=== PATIENT | female | born 1990 | race Caucasian/White ===

== ENCOUNTER 2021-09-20 16:18 | Emergency (ER) | payer MEDICAID, SELFPAY ==
[2021-09-20 16:19] VITALS: BP 174/95; PULSE 99; RESP 23; TEMP 36.5; O2SAT 99; BMI 58.6
--- NOTE | 2021-09-20 16:38 | EDS_ITS ---
HPI History of Present Illness Chief Complaint: Palpitations Informant: patient Onset/Context/Timing Onset: Today Context: Sudden Onset Timing: Waxes and wanes Quality: Dyspnea Location: Chest Worsened by: Nothing Relieved by: Nothing Narrative Narrative: Patient presenting with palpitations that began today. Patient states she was walking to arrange when she felt her heart racing. Patient states she feels like she cannot catch her breath. Patient states her symptoms have been waxing and waning. Patient states that when she sat down, her watch alerted her that her heart rate was very high. Patient states her watch stated that her heart rate was in the 160s. Patient states it went down into the 120s and then back up to the 140s. Patient states nothing makes her symptoms any better nothing makes them worse. Patient denies any fevers or chills.. Patient admits to some nausea but denies any vomiting. [facility] Medical History (Updated 09/20/21 @ 20:[address] Solitario Mora DO) Anxiety and depression Allergy/AdvReac Type Severity Reaction Status Date / Time hydromorphone [From Dilaudid] AdvReac Hives Verified 09/20/21 16:21 Surgical History (Updated 09/20/21 @ 16:[address] Solitario Mora DO) H/O section History of total abdominal hysterectomy Hx of cholecystectomy Hx of eye surgery Hx of tubal ligation Social History Smoking Status: Never smoker ROS ROS ED Constitutional Constitutional ED: Denies chills or fever(s) Eyes Eyes: Denies blurry vision or change in vision ENT ENT ED: Denies rhinorrhea or sore throat Cardiovascular Cardiovascular: Reports palpitations and racing heartbeat; Denies chest pain Respiratory/Chest Respiratory/Chest: Reports dyspnea; Denies cough Gastrointestinal Gastrointestinal: Reports nausea; Denies vomiting Genitourinary Genitourinary ED: Denies dysuria or hematuria Musculoskeletal Musculoskeletal: Reports back pain; Denies neck pain Integumentary Denies abscess or rash Neurologic Neurologic: Denies headache(s) or weakness Allergic/Immunologic Allergic/Immunologic ED: Denies mouth swelling or urticaria EXAM Physical Exam Const Vital Signs: 09/20/21 16:19 09/20/21 17:02 05/19/22 18:40 Temperature 97.7 F L Temperature Source Temporal Pulse Rate 99 86 Respiratory Rate 23 H 20 H Blood Pressure 174/95 H Blood Pressure Mean 121 Pulse Ox 99 98 98 Oxygen Delivery Method Room Air Room Air Room Air Positive well nourished, well developed and obese General Appearance ED: well developed and NAD Nutritional Appearance: obese HEENT Reports moist mucous membranes Neck supple and no JVD Resp normal respiratory effort and clear to auscultation bilaterally Cardio regular rate, regular rhythm and no murmurs GI normal to inspection, nondistended, normoactive bowel sounds and non-tender Palpation: soft Extremity normal to inspection General Extremety ED: Negative for edema or tenderness General Extremity: Negative for edema Neuro oriented x3, CN's II-XII intact bilaterally and no sensory deficits noted Sensorium / Orientation: alert Motor Exam: strength 5/5 throughout Psych mental status grossly normal Skin no rashes or lesions noted MDM MDM MDM Narrative Medical decision making narrative: EKG was obtained. On my interpretation, it showed a normal sinus rhythm with a rate of 94. CO interval, QRS interval, and QTc intervals were all normal. [place] was normal. There are no acute ST or T wave changes. Portable 1 view chest x-ray was obtained. On my interpretation, lung morrow are clear. There is normal cardiac silhouette. Bony thorax is normal. There is no acute process noted. Radiologist also interpreted the x- ray and agrees. CBC shows a slight anemia with a hemoglobin of 11.6 and hematocrit 34.0. Basic metabolic profile showed a slightly elevated creatinine of 1.16 and a BUN of 20. D-dimer was normal. High-sensitivity troponin was less than 3. TSH was normal. Magnesium was normal. Because her symptoms started just prior to arrival, a 2-hour high-sensitivity troponin was obtained and was also less than 3. Patient was advised of her findings. Patient is feeling better on reevaluation. Patient is resting comfortably. Patient has a HEART score of 0. Patient was advised that this is low risk for acute cardiac event. Patient was instructed to follow-up with her primary care physician in 5 to 7 days. Patient understood and was agreeable with the plan. All questions were answered. Lab Data Attestation: I reviewed the patient's lab results. Labs: Laboratory Results - last 24 hr 09/20/21 09/20/21 09/20/21 16:59 16:59 16:59 WBC 10.9 RBC 3.93 L Hgb 11.6 L Hct 34.0 L MCV 86.5 MCH 29.5 MCHC 34.1 RDW Std Deviation 39.4 RDW Coeff of Any 12.5 Plt Count 281 MPV 8.9 Immature Gran % (Auto) 0.600 Neut % (Auto) 74.3 H Lymph % (Auto) 17.9 L [place] % (Auto) 5.1 Eos % (Auto) 1.8 Baso % (Auto) 0.3 Absolute Neuts (auto) 8.1 H Absolute Lymphs (auto) 1.95 Nucleated RBC % 0 D-Dimer Quant (PE/DVT) < 0.27 L Sodium 138 Potassium 3.9 Chloride 104 Carbon Dioxide 26.0 Anion Gap 8 BUN 20 H Creatinine 1.16 H Estim Creat Clear Calc 73.44 Est GFR (MDRD) Af Amer 70 Est GFR (MDRD) Non-Af 58 L BUN/Creatinine Ratio 17.2 Glucose 103 Calcium 9.0 Magnesium 2.1 Troponin I High Sens < 3 L TSH 3.21 09/20/21 19:02 WBC RBC Hgb Hct MCV MCH MCHC RDW Std Deviation RDW Coeff of Any Plt Count MPV Immature Gran % (Auto) Neut % (Auto) Lymph % (Auto) [place] % (Auto) Eos % (Auto) Baso % (Auto) Absolute Neuts (auto) Absolute Lymphs (auto) Nucleated RBC % D-Dimer Quant (PE/DVT) Sodium Potassium Chloride Carbon Dioxide Anion Gap BUN Creatinine Estim Creat Clear Calc Est GFR (MDRD) Af Amer Est GFR (MDRD) Non-Af BUN/Creatinine Ratio Glucose Calcium Magnesium Troponin I High Sens < 3 L TSH Radiography Chest X-Ray - ED: 1 View, Read by ED Physician, Read by Radiologist and No Acute Disease Diagnostic Testing: Clinical Impression(s) from Imaging Studies Chest X-Ray 09/20/21 16:52 IMPRESSION: Normal x-ray examination of the chest. Electronically Signed: Rm Hylton MD at 17:02 EDT , EKG Initial EKG: Attestation: I personally reviewed and interpreted this EKG as follows: Interpretation: Sinus Rhythm (94) and No Acute Injury Pattern Prior EKG tracings: not available for review Prior: No Prior Discharge Plan Triage Chief Complaint: Palpitations ED Provider: Solitario Mora Dx/Rx/DC Orders Clinical Impression: Heart palpitations, Morbid obesity with BMI of 50.0-59.9, adult Instructions: ED Palpitations Primary Care Provider: Care Physician,No Primary Referrals: Dom Carrillo MD [STAFF PHYSICIAN] - 5-7 Days Care Physician,No Primary [Primary Care Provider] - Disposition Disposition: Home, Self Care
--- NOTE | 2021-09-20 16:42 | EKG12_ITS ---
Test Reason : Blood Pressure : / mmHG Vent. Rate : 094 BPM Atrial Rate : 094 BPM P-R Int : 140 ms QRS Dur : 096 ms QT Int : 368 ms P-R-T Axes : 026 043 017 degrees QTc Int : 460 ms Normal sinus rhythm Normal ECG Confirmed by DAVID GALVEZ, RONALD ([id number]), health editor KEVIN HINSON ([id number]) on 09/24/2021 9:57:10 AM Referred By: Confirmed By:LAINE HERNANDEZ MD
--- NOTE | 2021-09-20 16:52 | RAD_ITS ---
STUDY: X-RAY CHEST REASON FOR EXAM: Female, 30 years old. chest pain TECHNIQUE: Single AP portable view of the chest. COMPARISON: None. FINDINGS: The lungs are clear and expanded. There is no demonstrated pleural abnormality. Normal size heart. Normal mediastinum and alexander. Normal visualized pulmonary arteries. Normal visualized aortic arch and descending thoracic aorta. Normal visualized thoracic spine. Normal visualized ribs, clavicles, and shoulders. There is no demonstrated abnormality of the visualized soft tissue structures of the upper abdomen. RAD/Chest 1 View (Portable) IMPRESSION: Normal x-ray examination of the chest. Electronically Signed: Rm Hylton MD at 17:02 EDT ,
[2021-09-20 17:02] VITALS: O2SAT 98
[2021-09-20] MEDS: Aspirin 81 MG TAB.CHEW 324 MG PO (17:03)
[2021-09-20] MEDS: 0.9% Normal Saline 1,000 ML 1000 ML IV (17:03)
[2021-09-20 17:08] LABS: Absolute Lymphocyte Count 1.95 X10^3/uL (0.83-4.51); Absolute Neutrophil Count 8.1 X10^3/uL (2.0-7.7); Basophil# 0.03 X10^3/uL; Basophil% 0.3 % (0-1); Eosinophils% 1.8 % (0-5); Hemoglobin 11.6 g/dL (12.0-15.0); Lymphocyte # 1.95 X10^3/ul (0.83-4.51); Lymphocyte % 17.9 % (19-41); Mean Corp Hgb Conc 34.1 g/dL (32-36); Mean Corpuscular Hgb 29.5 pg (27.0-32.0); Mean Corpuscular Volume 86.5 fL (81-99); Mean Platelet Vol. 8.9 fl (6.2-12.0); Monocyte# 0.56 X10^3/uL; Monocyte% 5.1 % (0-10); NRBC Flagged by Analyzer 0 % (0-5); Neutrophil % 74.3 % (47-70); Platelet Count 281 K/mm3 (150-450); RBC Distribution Width CV 12.5 % (11.6-14.6); RBC Distribution Width SD 39.4 fl (35.1-43.9); Red Blood Count 3.93 M/mm3 (4.2-5.4); White Blood Count 10.9 K/mm3 (4.4-11.0)
[2021-09-20 17:31] LABS: D-Dimer Quantitative (DVT/PE) < 0.27 FEU/ug/m (0.27-0.49)
[2021-09-20 17:33] LABS: Anion Gap 8 (5-15); BUN 20 mg/dL (7-18); BUN/Creat Ratio 17.2 RATIO (10-20); Chloride 104 mmol/L (98-107); Creatinine, Serum 1.16 mg/dL (0.55-1.02); EST Glomerular Filtration Rate 58 mL/min (>60); Est Glom Filt Rate - Afr Amer 70 mL/min (>60); Estimated Creatinine Clearance 73.44 ml/min; Glucose 103 mg/dL (74-106); Magnesium 2.1 mg/dL (1.6-2.6); Potassium 3.9 mmol/L (3.5-5.1); Sodium Level 138 mmol/L (136-145); Thyroid Stim Hormone (TSH) 3.21 uIU/mL (0.358-3.74); Troponin-I HS (w/2H Reflex) < 3 pg/mL (3.0-54.0)
[2021-09-20 18:40] VITALS: PULSE 86; RESP 20; O2SAT 98
[2021-09-20 19:02] LABS: Reflex Troponin-HS? (from REC) Y
--- NOTE | 2021-09-20 19:28 | CM.ED ---
Social Work Note Pt has no PCP listed. SW in to speak with pt. Pt states that she has a PCP and it is Caryl Rodriguez in [facility]. Pt denied additional needs or concerns at this time. 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
[2021-09-20 19:29] LABS: Troponin-I HS < 3 pg/mL (3.0-54.0)
[2021-09-20 20:19] VITALS: BP 142/73; PULSE 83; RESP 15; O2SAT 97
[2021-09-20 20:32] VITALS: BP 142/73; PULSE 84; RESP 15; O2SAT 98
== END 2021-09-20 20:39 | disposition home or self-care (01) ==
PROVIDERS: Emergency Provider Emergency Medicine; Visit Provider Emergency Medicine
DX: R00.2 Palpitations (principal); E66.01 Morbid (severe) obesity due to excess calories; Z68.43 Body mass index [BMI] 50.0-59.9, adult
CPT/HCPCS: 71045; 80048; 83735; 84443; 84484; 85025; 85379; 93005; 96360; 99285; J7030; A4216

== ENCOUNTER 2024-05-04 20:59 | Emergency (ER) | payer MEDICAID, SELFPAY ==
[2024-05-04 21:00] VITALS: BP 163/87; PULSE 88; RESP 16; TEMP 36.8; O2SAT 100
[2024-05-04 21:02] VITALS: BMI 62.4
--- NOTE | 2024-05-04 21:14 | RAD_ITS ---
STUDY: X-RAY CHEST REASON FOR EXAM: Female, 33 years old. chest pain TECHNIQUE: Single AP portable view of the chest. COMPARISON: 09/20/2021 FINDINGS: Status post anterior cervical discectomy and fusion of the lower cervical spine. The lungs are clear and expanded. There is no demonstrated pleural abnormality. Normal size heart. Normal mediastinum and alexander. Normal visualized pulmonary arteries. Normal visualized aortic arch and descending thoracic aorta. Normal visualized thoracic spine. Normal visualized ribs, clavicles, and shoulders. There is no demonstrated abnormality of the visualized soft tissue structures of the upper abdomen. RAD/Chest 1 View (Portable) IMPRESSION: Normal x-ray examination of the chest. Electronically Signed: Rm Hylton MD at 21:33 EST ,
--- NOTE | 2024-05-04 21:14 | EKG12_ITS ---
Test Reason : CP Blood Pressure : */* mmHG Vent. Rate : 82 BPM Atrial Rate : 82 BPM P-R Int : 142 ms QRS Dur : 92 ms QT Int : 368 ms P-R-T Axes : 22 14 44 degrees QTcB Int : 429 ms Normal sinus rhythm Normal ECG Confirmed by DARÍO GALVEZ, RACHEL ([id number]), script editor ADRIENNE BOSS ([id number]) on 05/06/2024 6:13:55 AM Referred By: CG Confirmed By: RACHEL CHANEL MD
[2024-05-04 21:48] LABS: Absolute Lymphocyte Count 2.68 X10^3/uL (0.83-4.51); Absolute Neutrophil Count 6.6 X10^3/uL (2.0-7.7); Basophil# 0.05 X10^3/uL; Basophil% 0.5 % (0-1); Eosinophil# 0.34 X10^3/uL; Eosinophils% 3.3 % (0-5); Hematocrit 31.9 % (37-47); Hemoglobin 10.8 g/dL (12.0-15.0); Lymphocyte # 2.68 X10^3/ul (0.83-4.51); Mean Corp Hgb Conc 33.9 g/dL (32-36); Mean Corpuscular Volume 88.6 fL (81-99); Mean Platelet Vol. 9.5 fl (6.2-12.0); Monocyte# 0.56 X10^3/uL; Monocyte% 5.4 % (0-10); NRBC Flagged by Analyzer 0 % (0-5); Neutrophil # 6.58 X10^3/uL (2.7-7.7); Platelet Count 225 K/mm3 (150-450); RBC Distribution Width CV 12.6 % (11.6-14.6); RBC Distribution Width SD 40.6 fl (35.1-43.9); White Blood Count 10.3 K/mm3 (4.4-11.0)
[2024-05-04 22:00] VITALS: BP 103/68; PULSE 88; RESP 15; O2SAT 94
[2024-05-04 22:06] LABS: Anion Gap 5 (5-15); BUN 18 mg/dL (7-18); Chloride 105 mmol/L (98-107); Creatinine, Serum 1.06 mg/dL (0.55-1.02); EST Glomerular Filtration Rate 63 mL/min (>60); Est Glom Filt Rate - Afr Amer 76 mL/min (>60); Glucose 104 mg/dL (74-106); Sodium Level 137 mmol/L (136-145); Troponin-I HS (w/2H Reflex) < 3 pg/mL (3.0-54.0)
[2024-05-04] MEDS: Aspirin 325 MG Tablet PO (22:46)
[2024-05-04] MEDS: Ondansetron 4 MG/2 ML Vial IV (22:46)
[2024-05-04] MEDS: Morphine 4 MG/ML Syringe IV (22:46)
[2024-05-04 23:00] VITALS: BP 108/64; PULSE 91; RESP 14; O2SAT 93
[2024-05-04 23:03] LABS: D-Dimer Quantitative (DVT/PE) 0.27 FEU/ug/m (0.27-0.49)
[2024-05-04 23:05] LABS: AST(SGOT) 36 U/L (15-37); Alanine Aminotransfer ALT/SGPT 56 U/L (13-56); Albumin, Serum 3.3 g/dL (3.2-5.0); Alkaline Phosphatase 130 U/L (45-117); Bilirubin, Direct 0.26 mg/dL (0.00-0.30); Globulin 3.6 g/dL (2.2-4.2); Lipase 48 U/L (13-75); Magnesium 2.1 mg/dL (1.6-2.6); Protein, Total 6.9 g/dL (6.4-8.2)
[2024-05-04 23:43] LABS: Reflex Troponin-HS? (from REC) Y
[2024-05-05] VITALS: BP 112/75; PULSE 87; RESP 14; O2SAT 95
[2024-05-05 00:31] LABS: Troponin-I HS 5 pg/mL (3.0-54.0)
--- NOTE | 2024-05-05 00:44 | EX.ED.DYSGE1 ---
HPI History of Present Illness Chief Complaint: Chest Pain Informant: patient and friend Narrative Narrative: Patient is a 33-year-old female with a past medical history of anxiety and depression as well as previous total abdominal hysterectomy now on hormone replacement therapy. She states that a few hours ago while sitting at rest she developed a sharp midsternal to left-sided chest pain. She states there is no associated nausea vomiting diaphoresis or shortness of breath. She states there was no recent trauma or excessive activity. She denies any known sick contacts. She denies any recent travel surgery or history of DVT/PE. She states she tried [id number] medications but the pain will not resolve and secondary to this comes in for evaluation [facility] Medical History (Updated 05/05/24 @ 00:[address] Toni Newton DO) Anxiety and depression Home Medications ?Medication ?Instructions ?Recorded ?Last Taken ?Type cyclobenzaprine 10 mg tablet 10 mg PO DAILY 09/20/21 Unknown History ketorolac 10 mg tablet 10 mg PO Q6H PRN PRN Pain 09/20/21 Unknown History trazodone 50 mg tablet 50 mg PO QHS 09/20/21 Unknown History venlafaxine 75 mg capsule,extended 75 mg PO DAILY 09/20/21 Unknown History release 24 hr Allergy/AdvReac Type Severity Reaction Status Date / Time Acrylic Acid and Acrylates Allergy Rash Verified 05/04/24 21:02 (steri-strips (acrylate)) magnesium Allergy ITCHING Verified 05/04/24 21:02 hydromorphone (From Dilaudid) AdvReac Hives Verified 05/04/24 21:02 melatonin AdvReac HEADACHE Verified 05/04/24 21:02 Surgical History (Updated 09/20/21 @ 16:[address] Solitario Mora DO) Hx of tubal ligation Hx of eye surgery Hx of cholecystectomy H/O section History of total abdominal hysterectomy Social History Smoking Status: Never smoker ROS ROS ED Constitutional Constitutional ED: Denies chills or fever(s) Eyes Eyes: Denies blurry vision or change in vision ENT ENT ED: Denies sore throat Cardiovascular Cardiovascular: Reports chest pain; Denies palpitations or racing heartbeat Respiratory/Chest Respiratory/Chest: Denies cough or dyspnea Gastrointestinal Gastrointestinal: Denies abdominal pain, diarrhea, nausea or vomiting Genitourinary Genitourinary ED: Denies dysuria Musculoskeletal Musculoskeletal: Denies back pain Integumentary Denies rash Neurologic Neurologic: Denies headache(s) Hematologic/Lymphatic Hematologic/Lymphatic: Denies easy bleeding or easy bruising EXAM Physical Exam Const Vital Signs: 05/04/24 21:00 05/04/24 21:00 05/04/24 21:14 Temperature 98.2 F Temperature Source Oral Pulse Rate 88 Respiratory Rate 16 Respiratory Effort Normal Non-Labored Blood Pressure 163/87 H Blood Pressure Mean 112 Pulse Ox 100 Oxygen Delivery Method Room Air Room Air 05/04/24 22:00 05/04/24 23:00 05/05/24 00:00 Temperature Temperature Source Pulse Rate 88 91 87 Respiratory Rate 15 14 14 Respiratory Effort Blood Pressure 103/68 108/64 112/75 Blood Pressure Mean 79 78 87 Pulse Ox 94 93 95 Oxygen Delivery Method Room Air Room Air Room Air Positive well nourished, well developed and obese General Appearance ED: well developed; Negative for pallor Nutritional Appearance: obese HEENT HEENT Narrative: Normocephalic atraumatic Eyes PERRL and EOMs intact bilaterally General Eye ED: Negative for scleral icterus Neck supple Neck Narrative: No nuchal rigidity or meningeal signs Chest Wall Chest Narrative: No bony deformity or crepitance of the chest wall No overlying soft tissue changes to suggest trauma or infection Resp normal respiratory effort and clear to auscultation bilaterally Resp Narrative: Breath sounds are diminished throughout but overall clear to auscultation without signs of respiratory distress Cardio regular rate and regular rhythm Rate: other Other Details: Regular rate and rhythm without murmurs rubs or gallops Radial and carotid pulses are equal and symmetric GI non-distended and no masses GI Narrative: Obese soft and nondistended with normal active bowel sounds. Patient has mild pain with palpation in the midepigastric region without voluntary guarding or rigidity. No pulsatile mass or fluid wave Auscultation: normoactive bowel sounds Palpation: soft Back/Spine no CVA tenderness Extremity normal to inspection Extremity Narrative: No asymmetric edema no pitting edema negative Homans' sign bilaterally Neuro oriented x3, CN's II-XII intact bilaterally and no sensory deficits noted Sensorium / Orientation: alert Motor Exam: strength 5/5 throughout Psych mental status grossly normal Skin no rashes or lesions noted and no wounds General Skin Exam: Negative for jaundice or pallor MDM MDM MDM Narrative Medical decision making narrative: Patient arrived to the ER hypertensive but otherwise with stable vitals. She is low risk for cardiovascular disease but with her report of midsternal/upper abdominal chest discomfort there is concern for acute coronary syndrome versus cardiac dysrhythmia. As there is pain in the upper abdomen in the midepigastric region there is concern for atypical pancreatitis. There is also potential for pneumonia versus pneumothorax. As patient is also on home replacement therapy there is concern for pulmonary embolus. Secondary to this a chest x-ray and basic blood work were ordered. Initial troponin was 3 delta was 5 indicating no acute coronary syndrome and patient had no abnormal cardiac rhythm while on the monitor. D-dimer was normal going against PE or dissection. Lipase is normal going against atypical pancreatitis. Chest x-ray also revealed no acute lung pathology. Therefore at this time as patient does not have significant risk factors for cardiovascular disease her overall workup is negative and she does report improvement of symptoms with medication provided in the ER she is otherwise safe for discharge History & Record Review Discussion w/independent historian: Patient and Friend Lab Data Attestation: I reviewed the patient's lab results. Labs: Laboratory Results - last 24 hr 05/04/24 05/04/24 21:30 23:57 WBC 10.3 RBC 3.60 L Hgb 10.8 L Hct 31.9 L MCV 88.6 MCH 30.0 MCHC 33.9 RDW Std Deviation 40.6 RDW Coeff of Any 12.6 Plt Count 225 MPV 9.5 Immature Gran % (Auto) 0.800 Neut % (Auto) 64.0 Lymph % (Auto) 26.0 [place] % (Auto) 5.4 Eos % (Auto) 3.3 Baso % (Auto) 0.5 Absolute Neuts (auto) 6.6 Absolute Lymphs (auto) 2.68 Nucleated RBC % 0 D-Dimer Quant (PE/DVT) 0.27 Sodium 137 Potassium 4.0 Chloride 105 Carbon Dioxide 27.0 Anion Gap 5 BUN 18 Creatinine 1.06 H Est GFR (MDRD) Af Amer 76 Est GFR (MDRD) Non-Af 63 BUN/Creatinine Ratio 17.0 Glucose 104 Calcium 9.0 Magnesium 2.1 Total Bilirubin 0.90 Direct Bilirubin 0.26 AST 36 ALT 56 Alkaline Phosphatase 130 H Troponin I High Sens < 3 L 5 Total Protein 6.9 Albumin 3.3 Globulin 3.6 Lipase 48 Radiography Diagnostic Testing: Clinical Impression(s) from Imaging Studies Chest X-Ray 05/04/24 21:14 IMPRESSION: Normal x-ray examination of the chest. Electronically Signed: Rm Hylton MD at 21:33 EST , Chest x-ray as interpreted by the emergency medicine physician reveals no acute infiltrate pneumothorax or pleural effusion Discharge Plan Triage Chief Complaint: Chest Pain ED Provider: Toni Newton Dx/Rx/DC Orders Clinical Impression: Nonspecific chest pain, Morbid obesity, Anxiety and depression Instructions: ED Chest Pain, Uncertain Cause Prescriptions: No Action cyclobenzaprine 10 mg tablet 10 mg PO DAILY venlafaxine 75 mg capsule,extended release 24hr 75 mg PO DAILY trazodone 50 mg tablet 50 mg PO QHS ketorolac 10 mg tablet 10 mg PO Q6H PRN PRN (Reason: Pain) Patient Comments: TAKE 1 TABLET BY MOUTH EVERY 6 HOURS NEEDED Primary Care Provider: Denisha Stevens Referrals: Denisha Stevens, [facility] [Primary Care Provider] - Activity Restrictions/Additional Instructions: Your workup today showed no signs of abnormal cardiac rhythm active heart damage or pneumonia. Please follow-up with your family doctor for repeat evaluation and return to the ER should you have any further concerns Print Language: Azeri Disposition Disposition: Home, Self Care
[2024-05-05 01:00] VITALS: BP 112/74; PULSE 74; RESP 16; O2SAT 98
[2024-05-05 01:14] VITALS: BP 112/74; PULSE 74; RESP 16; TEMP 36.6; O2SAT 98
== END 2024-05-05 01:14 | disposition home or self-care (01) ==
PROVIDERS: Emergency Provider Emergency Medicine; PCP Nurse Practitioner Family; Visit Provider Emergency Medicine
DX: R07.9 Chest pain, unspecified (principal); E66.01 Morbid (severe) obesity due to excess calories; F32.A Depression, unspecified; F41.9 Anxiety disorder, unspecified
CPT/HCPCS: 71045; 80048; 80076; 83690; 83735; 84484; 85025; 85379; 93005; 96374; 96375; 99284; A4216; J2405